=== PATIENT | female | born 1985 | race Caucasian/White ===

== ENCOUNTER 2019-07-06 09:14 | Emergency (ER) | payer BC, SELFPAY ==
--- NOTE | ~2019-07-06 | CT_ITS ---
EXAMINATION: CT abdomen pelvis w con DATE: 07/06/2019 11:27 INDICATION: Abdominal pain. Constipation. History of metastatic cervical cancer. TECHNIQUE: Computed tomography (CT) of the abdomen and pelvis was performed with 100 cc Omnipaque 350 intravenous contrast. Automated exposure control and iterative reconstruction technique were employe d. Exam dose: 428.08 mGy-cm total exam DLP. COMPARISON: 11/13/2018 CT abdomen pelvis FINDINGS: New mild patchy infiltrates and/atelectasis in the lower lung zones since 11/13/2018. There are extensive hepatic metastases of various size scattered throughout the left and right lobes and caudate process, measuring up to at least 3.7 cm dimension. Hepatic metastatic disease is a new f inding since 11/13/2018. There is mild pericholecystic fluid collection and mild enhancement of the gallbladder wall. No bile duct or pancreatic duct dilatation. No splenic mass lesion. No pancreatic mass lesion or calcificatio n. No adrenal mass lesion. 5 mm right renal cyst. No other renal space occupying mass lesion. No urinary tract calculus or hydro ureteronephrosis. The urinary bladder is unremarkable. Surgical clips are noted in the region of the uterine cervix. The uterus is present. The adnexal areas are unremarkable. Interval mild left periaortic lymphadenopathy, diminished left common iliac adenopathy since 9.. Moderately large hiatal hernia. Mild nonspecific pericholecystic fluid and gallbladder mucosal enhanc ement; consider gallbladder ultrasound or radionuclide hepatobiliary scan as clinically appropriate Mild colonic diverticulosis. No bowel obstruction or intraperitoneal free air. Bilateral fat-containing inguinal hernias, larger on the right. Recent anterior right seventh through ninth rib fractures. Anterior left 10th rib fracture. There is extensive metastatic disease of the thoracic and lumbar spine. Pathologic compression fractu res of T9 and T10. Pathologic burst fracture of L1. The metastatic disease and fractures of the inclu ded lower thoracic and lumbar spine are new finding since 11/13/2018. IMPRESSION: Extensive metastases to the liver and extensive thoracic and lumbar spine metastases, ne w since 11/05/2018 Interval mild left para-aortic lymphadenopathy the diminished left common iliac adenopathy since 11/13 Moderately large hiatal hernia Mild colonic diverticulosis Mild pericholecystic fluid and gallbladder mucosal enhancement, nonspecific; consider gallbladder ult rasound or radionuclide hepatobiliary scan if clinically appropriate Reviewed, dictated and finalized at [facility]. Reviewed, dictated and finalized at [facility]. [employer] IMPRESSION: Extensive metastases to the liver and extensive thoracic and lumba r spine metastases, new since 11/05/2018 Interval mild left para-aortic lymphadenopathy the diminished left common iliac adenopathy since 11/13/2018 Moderately large hiatal hernia Mild colonic diverticulosis Mild pericholecystic fluid and gallbladder mucosal enhancement, nonspecific; co nsider gallbladder ultrasound or radionuclide hepatobiliary scan if clinically appropriate
--- NOTE | ~2019-07-06 | XR_ITS ---
XR abdomen/kub 1V DATE: 07/06/2019 10:27 INDICATION: Constipation. Abdominal pain. History of cervical cancer with metastases. TECHNIQUE: Upright AP view including the lower chest and upper and mid abdomen, excluding pelvis COMPARISON: 11/13/2018 CT abdomen pelvis FINDINGS: Since 10/17/2018 CT abdomen pelvis examination there is a fracture deformity of L1. Additional fracture deformities at T6 and a fairly T9 and T10. Lateral left seventh rib fracture of undetermined age. Right Port-A-Cath catheter tip overlies the superior cavoatrial junction area approximately. Nonspecific bowel gas pattern. There are some nondilated gas containing small bowel segments which ma y represent mild adynamic ileus. No evidence of intraperitoneal free air. IMPRESSION: Limited nonspecific abdomen; possible mild adynamic ileus Right Port-A-Cath Reviewed, dictated and finalized at [facility]. Reviewed, dictated and finalized at [facility]. [employer]ER
--- NOTE | ~2019-07-06 | XR_ITS ---
XR chest 1V portable DATE: 07/06/2019 12:49 INDICATION: Shortness of breath TECHNIQUE: Portable upright AP chest on 07/06/2019 at 1245 hours COMPARISON: 02/12/2019 2 view chest FINDINGS: There is mild infiltrate and/atelectasis in both lower lung zones. There is moderate elevat ion of the right leaf of the diaphragm. No pleural effusion or pulmonary vascular congestion or pneum othorax is detected. Right internal jugular Port-A-Cath catheter tip overlies the superior vena cava near the superior cav oatrial junction. Heart size is normal. Included skeletal structures are unremarkable. IMPRESSION: Mild bilateral lower lung infiltrate and/atelectasis and moderate elevation of right leaf of diaphragm Right Port-A-Cath catheter tip in caudal aspect of superior vena cava near superior cavoatrial juncti on Reviewed, dictated and finalized at [facility]. [employer] SUPER[employer]OR IMPRESSION: Mild bilateral lower lung infiltrate and/atelectasis and moderate e levation of right leaf of diaphragm Right Port-A-Cath catheter tip in caudal aspect of superior vena cava near supe rior cavoatrial junction
[2019-07-06 09:13] VITALS: BP 114/79; PULSE 123; RESP 16; TEMP 36.7; O2SAT 100
[2019-07-06 09:59] LABS: Basophils Percent Auto 0.2 % (0.2-1.2); Eosinophils Absolute Auto 0.1 K/mm3 (0-0.3); Hematocrit 31.7 % (37.0-47.0); Hemoglobin 9.8 g/dL (12.0-15.0); Immature Granulocyte Percent A 1.1 % (0-0.5); Lymphocytes Percent Auto 5.7 % (18.3-44.2); Mean Corpuscular HGB Conc 30.9 g/dl (32-36); Mean Corpuscular Hemoglobin 26.6 pg (26-34); Mean Corpuscular Volume 85.9 fl (80-100); Mean Platelet Volume 9.4 fl (7.4-10.4); Monocytes Percent Auto 11.7 % (2.6-8.5); Neutrophils Percent Auto 80.3 % (45.5-73.1); Platelet Count Result 444 k/mm3 (150-375); Red Blood Count 3.69 M/mm3 (4.2-5.4); White Blood Count 8.7 K/mm3 (4.5-10.0)
--- NOTE | 2019-07-06 10:01 | ED.ABDPAIN ---
HPI - Abdominal Pain General Chief Complaint: Abdominal Pain Stated Complaint: Abd Pain Time Seen by Provider: 07/06/19 09:34 Source: patient Mode of arrival: ambulatory Limitations: no limitations History of Present Illness HPI narrative: This is a 33 year old female that presents to the ER for constipation. Reports for the last week she has been unable to have a bowel movement. Reports at first she was having small hard stool balls. Reports for the last couple of days she has been unable to have a bowel movement at all. Reports she has metastatic cervical cancer and is on hospice with [facility]. Reports they have been given her stool softeners and laxatives with no relief. Reports they also tried an enema today without relief. Reports she does have some RUQ abdominal pain, which has been present for the past couple weeks due to metastatic disease. Reports she has been short of breath the last couple of days and was placed on oxygen via [place] at home by hospice. Denies fever, chest pain, nausea, vomiting, dysuria or hematuria. Related Data Home Medications Medication Instructions Recorded Confirmed docusate sodium [DOK] PO 07/06/19 fentanyl 1 patch TRANSDERMAL Q72H 07/06/19 morphine PO 07/06/19 morphine concentrate 07/06/19 ondansetron HCl 07/06/19 pantoprazole PO 07/06/19 polyethylene glycol 3350 [Miralax] 17 g PO DAILY PRN 07/06/19 Allergies Allergy/AdvReac Type Severity Reaction Status Date / Time pistachio nut Allergy Numbness Verified 07/06/19 09:22 Review of Systems Review of Systems: Narrative: CONSTITUTIONAL: Denies fever CARDIOVASCULAR: Denies chest pain RESPIRATORY: Reports dyspnea. GASTROINTESTINAL: Reports abdominal pain, nausea, vomiting GENITOURINARY: Denies dysuria or hematuria. All systems reviewed & are unremarkable except as noted in HPI and below PMFSH Past Medical History Medical History (Updated 07/06/19 @ 14:09 by Hannah Petty PA-C) History of cervical cancer Surgical History Surgical History (Updated 07/06/19 @ 10:07 by Hannah Petty PA-C) History of myringotomy History of tonsillectomy Exam Narrative: Exam Narrative: GENERAL: Chronically ill-appearing, well-nourished, and in no acute distress. HEAD: Normocephalic, atraumatic. EYES: EOMI. ENT: Nares clear, no rhinorrhea or epistaxis. Mucous membranes moist. Oropharynx without tonsillar hypertrophy exudate or other lesions. Bilateral TMs pearly perez non-bulging NECK: Supple. No adenopathy or masses. CHEST: Clear to auscultation. No respiratory distress. No wheezes, rales or rhonchi HEART: Regular rate and rhythm. No murmur heard. Normal peripheral pulses. ABDOMEN: Soft, nondistended, normal active bowel sounds. Mild tenderness to palpation of the RUQ, without guarding EXTREMITIES: Normal range of motion. No edema. SKIN: Warm, dry, no rash. NEURO: No focal deficits. Alert and oriented x3. PSYCH: Normal mood and affect Course Vital Signs Vital signs: Vital Signs Temperature 98.1 F 07/06/19 09:13 Pulse Rate 123 H 07/06/19 09:13 Respiratory Rate 16 07/06/19 09:13 Blood Pressure 114/79 07/06/19 09:13 Pulse Oximetry 100 07/06/19 09:13 Temperature 98.1 F 07/06/19 09:13 Pulse Rate 123 H 07/06/19 09:13 Respiratory Rate 16 07/06/19 09:13 Blood Pressure 114/79 07/06/19 09:13 Pulse Oximetry 100 07/06/19 09:13 MDM - Abdominal Pain MDM Narrative Medical decision making narrative: Patient presents to the emergency department for constipation. She has history of metastatic cervical cancer with mets to bone and liver. She is currently on hospice with [facility]. She has been taking stool softener and lactulose with little relief at home. Reports she also tried an enema at home without relief. Patient is afebrile and nontoxic-appearing. Tachycardic upon arrival which improved after IV fluids. CBC without leukocytosis. Hemoglobin is 9.8, unsure what her baseline is as I do not have any recent lab
[2019-07-06] MEDS: MORPHINE SULFATE 4 MG/ML INJ IV PUSH (10:03)
[2019-07-06] MEDS: SODIUM CHLORIDE 0.9% IV 1,000 ML 999 ML IV CONT ×2 (10:03→12:29)
[2019-07-06] MEDS: ONDANSETRON INJ 4 MG/2 ML VIAL IV PUSH (10:03)
[2019-07-06 10:11] LABS: Alanine Aminotransferase 66 U/L (4-35); Albumin Level 3.9 g/dL (3.5-5.1); Alkaline Phosphatase 380 U/L (38-126); Aspartate Amino Transferase 61 U/L (14-36); Bilirubin,Total 0.7 mg/dL (0.2-1.3); Blood Urea Nitrogen 11 mg/dL (7-17); Calcium 9.9 mg/dL (8.4-10.2); Carbon Dioxide 37 mmol/L (22-30); Chloride 87 mmol/L (98-107); Estimated CRCL calculation 139 ml/min; Estimated Glomerular Filt Rate > 60; Glucose 98 mg/dL (65-105); Lipase 11 U/L (23-300); Potassium 3.5 mmol/L (3.4-5.0); Sodium 136 mmol/L (137-145)
--- NOTE | 2019-07-06 10:14 | PC.NURSE ---
Pt states she is unable to urinate at this time and refuses straight cath
[2019-07-06] MEDS: HYDROMORPHONE HCL 1 MG/ML INJ IV PUSH (12:30)
--- NOTE | 2019-07-06 12:36 | PC.NURSE ---
assuming care of pt from [facility] [place]. Pt given pain meds. Pt talking with ED Provider. PT aware of POC. Pt unsure what all she can ask for due to hospice status. Pt states she has chest and back pain from the bone cancer. Pt given meds ordered. Pt family at bedside. Pt has call light in reach.
--- NOTE | 2019-07-06 13:16 | PC.NURSE ---
Pt refusing enema at this time. ED Provider aware. Pt asking to take home po morhpine at this time. ED Provider states no and pt informed. ED provider to talk to pt
[2019-07-06] MEDS: METHYLNALTREXONE 12 MG/0.6 ML VIAL SUB-Q (14:15)
--- NOTE | 2019-07-06 15:22 | PM.IMCN ---
Assessment and Plan Assessment and plan (1) Palliative care by specialist: Code(s): Z51.5 - Encounter for palliative care Status: Acute Assessment and Plan: Obstipation did not respond to osmotic laxative and stool softener and enema at home She did well with methyl naltrexone 60 mg subcutaneously x1 She initially wish to stay inpatient because of dizziness and sweats and nausea However with this vagal response resolved she wished to go home again She will continue home regimen and continue to follow with the [facility] for hospice (2) Obstipation: Code(s): K59.00 - Constipation, unspecified Status: Acute (3) Cancer, metastatic to liver: Code(s): C78.7 - Secondary malignant neoplasm of liver and intrahepatic bile duct Status: Acute (4) Pathologic rib fracture: Qualifiers: Encounter type: initial encounter Qualified Code(s): M84.48XA - Pathological fracture, other site, initial encounter for fracture Code(s): M84.48XA - Pathological fracture, other site, initial encounter for fracture Status: Acute (5) Bone metastases: Code(s): C79.51 - Secondary malignant neoplasm of bone Status: Acute (6) Cervical cancer: Code(s): C53.9 - Malignant neoplasm of cervix uteri, unspecified Status: Acute HPI Data of Consult Consult date: 07/06/19 Primary Care Provider: [facility] PHYSICIAN Consult Narrative Narrative: Gypsy Cavazos is a 33 year old female who is on hospice for metastatic cervical cancer. She has bone metastases as well as lymph metastases. She has generalized pain. She has been on chronic narcotic therapy. She has not had a bowel movement for the past week in spite of Colace and lactulose. Her hospice nurse attempted enema without results. Patient wished to go to the emergency department. She did not wish to wait for hospice nurse to return with another enema. Patient was having abdominal pain bloating and cramping. Decreased appetite and nausea. No emesis. No fevers chills or sweats or bleeding. Review of Systems Review of Systems: Narrative: Constipation and generalized bone pain. Generalized weakness. Sweats after bowel movement. Lightheadedness after bowel movement. All systems reviewed & are unremarkable except as noted in HPI and below PMFSH Past Medical History Medical History History of cervical cancer Surgical History Surgical History History of myringotomy History of tonsillectomy Family History Family History (Updated 07/06/19 @ 15:26 by Tera Hastings MD) Father Hypertension Mother No problems noted. Social History Social History (Updated 07/06/19 @ 15:27 by Tera Hastings MD) Living arrangements: with family Occupation/Education: retired Additional occupation/education comments: disabled Meds Home Medications and Allergies Home Medications Medication Instructions Recorded Confirmed Type docusate sodium [DOK] PO 07/06/19 History fentanyl 1 patch TRANSDERMAL Q72H 07/06/19 History morphine PO 07/06/19 History morphine concentrate 07/06/19 History ondansetron HCl 07/06/19 History pantoprazole PO 07/06/19 History polyethylene glycol 3350 [Miralax] 17 g PO DAILY PRN 07/06/19 History Allergies Allergy/AdvReac Type Severity Reaction Status Date / Time pistachio nut Allergy Numbness Verified 07/06/19 09:22 Vital Signs Vital Signs - 24 hr 07/06/19 09:13 Temperature 98.1 F Pulse Rate 123 H Respiratory Rate 16 Blood Pressure 114/79 Pulse Oximetry 100 Exam Narrative: Exam Narrative: Chronically ill-appearing middle-aged female who appears older than her stated age Skin alopecia Head eyes ears nose and throat pupils equal round react to light [place] extraocular moves intact sclerae nonicteric pharyngeal mucosa pink and intact
--- NOTE | 2019-07-13 11:21 | PC.NURSE ---
Addendum entered by Ej Rene RN 07/13/19 11:23: NS stopped at 1330 on 07/06/2019 Original Note: LATE ENTRY This note is being entered to document information to the patient's record. The following information was omitted on [07/13/2019], by [Ej Rene RN].
== END 2019-07-06 15:46 | disposition hospice, home (50) ==
PROVIDERS: Physician Assistant; Emergency Provider Emergency Medicine
DX: J98.11 Atelectasis (principal); C78.7 Secondary malignant neoplasm of liver and intrahepatic bile duct; C79.51 Secondary malignant neoplasm of bone; C53.9 Malignant neoplasm of cervix uteri, unspecified; K44.9 Diaphragmatic hernia without obstruction or gangrene; K57.90 Diverticulosis of intestine, part unspecified, without perforation or abscess without bleeding; R93.2 Abnormal findings on diagnostic imaging of liver and biliary tract
CPT/HCPCS: 36415; 71045; 74018; 74177; 80053; 83690; 85025; 96361; 96372; 96374; 96375; 99284; J1170; J2212; J2270; J2405; J7030; Q9967